=== PATIENT | female | born 1965 | race Caucasian/White ===

== ENCOUNTER → 2016-10-21 | Emergency (ER) | payer BC ==
[~2016-10-21] VITALS: Ht 165.1 cm; Wt 72.6 kg
[2016-10-21 16:40] VITALS: BP 156/93
== END | disposition home or self-care (01) ==
LOC: ER 23:02
DX: F41.9 Anxiety disorder, unspecified (principal); I10 Essential (primary) hypertension; I49.9 Cardiac arrhythmia, unspecified
CPT/HCPCS: 93005 ×2; 99284; A4606; Z7610

== ENCOUNTER 2018-11-23 13:00 | Emergency (ER) | payer BC ==
[~2018-11-23] VITALS: Ht 167.6 cm; Wt 79.4 kg
[2018-11-23] MEDS ORDERED: IV NS 0.9% 1,000 ML BAG IV ONE (13:30)
[2018-11-23] MEDS ORDERED: AMLODIPINE BESYLATE 5 MG TABLET PO ONE (13:30)
[2018-11-23] MEDS ORDERED: LORAZEPAM 1 MG TABLET ONE (13:35)
[2018-11-23] MEDS ORDERED: AMLODIPINE BESYLATE 5 MG TABLET ONE (13:36)
[2018-11-23] MEDS ORDERED: LORAZEPAM 1 MG TABLET PO ONE (14:00)
[2018-11-23 14:33] LABS: BASOPHILS % (AUTO) 0.6 % (0.0-2.0); EOSINOPHILS % (AUTO) 1.8 % (0.0-6.0); HEMATOCRIT 44 % (33-45); HEMOGLOBIN 15.1 g/dL (11.5-14.8); LYMPHOCYTES # (AUTO) 0.8 /CMM (0.8-4.8); LYMPHOCYTES % (AUTO) 12.8 % (20.0-44.0); MEAN CORPUSCULAR HGB CONC 34 g/dl (31.0-36.0); MEAN CORPUSCULAR VOLUME 90 fL (82-100); MONOCYTES # (AUTO) 0.3 /CMM (0.1-1.30); MONOCYTES % (AUTO) 5.5 % (2.0-12.0); NEUTROPHILS # (AUTO) 4.7 /CMM (1.8-8.9); NEUTROPHILS % (AUTO) 79.3 % (43.0-81.0); PLATELET COUNT (AUTO) 175 /CMM (150-450); RED BLOOD CELL COUNT(AUTO) 4.92 MIL/uL (4.0-5.2)
[2018-11-23 14:41] LABS: CALCIUM, SERUM 9.8 mg/dL (8.5-10.1); CREATININE 0.7 mg/dL (0.6-1.3); POTASSIUM 3.8 mmol/L (3.5-5.1)
--- NOTE | 2018-11-23 15:45 | NUR ---
For discharge Aftercare Instructions given verbalized understanding Home ambulatory Stable
[2018-11-23 15:54] VITALS: BP 160/70
== END 2018-11-23 15:58 | disposition home or self-care (01) ==
LOC: ER 13:02
DX: R55 Syncope and collapse (principal); I10 Essential (primary) hypertension; F41.9 Anxiety disorder, unspecified
CPT/HCPCS: 36415; 71045-TC; 80048-TC; 84484-TC; 85025-TC